=== PATIENT | male | born 1980 | race African-American/Black ===

== ENCOUNTER 2024-03-22 04:45 | Emergency (ER) | payer SELFPAY ==
[2024-03-22] MEDS ORDERED: cloNIDine 0.1 MG TAB ONE (05:04)
[2024-03-22] MEDS ORDERED: Furosemide 40 MG (4 mL) VIAL ONE (05:04)
[2024-03-22] MEDS ORDERED: Nitroglycerin 0.4 MG TAB 1 EACH ONE (05:04)
[2024-03-22 05:13] LABS: #Basophils Less than 0.03 10x3/uL (0.0-0.2); #Eosinophils 0.06 10x3/uL (0.0-0.5); #Monocytes 0.35 10x3/uL (0.0-1.1); #Neutrophils 3.67 10x3/uL (1.5-8.4); %Basophils 0.3 % (0.0-2.0); %Lymphocytes 28.1 % (18.0-47.0); %Monocytes 6.1 % (0.0-10.0); %Neutrophils 64.3 % (40.0-75.0); Hematocrit 42.9 % (38.8-50.0); Hemoglobin 13.9 g/dL (13.5-17.5); Mean Corpuscular HGB CONC 32.4 g/dL (32.0-36.0); Mean Corpuscular Hemoglobin 28.6 pg (27.0-33.0); Mean Corpuscular Volume 88.3 fL (81.2-95.1); Platelet Count 302 10x3/uL (150-450); RBC Distribution Width 12.9 % (11.5-14.5); Red Blood Cell (RBC) Count 4.86 10x6/uL (4.32-5.72); White Blood Cell (WBC) Count 5.72 10x3/uL (3.5-10.5)
[2024-03-22 05:32] LABS: ALT (SGPT) 76 U/L (8-55); AST (SGOT) 58 U/L (5-34); Albumin 3.1 g/dL (3.5-5.0); Alkaline Phosphatase 56 U/L (40-110); Anion Gap 14 mmol/L (10-20); BUN (Urea Nitrogen) 29 mg/dL (8.9-20.6); Bilirubin, Total 0.5 mg/dL (0.2-1.2); Calc. Creatinine Clearance 0 mL/min (70-130); Calcium 8.6 mg/dL (7.8-10.44); Carbon Dioxide 21 mmol/L (22-29); Chloride 108 mmol/L (98-107); Estimated GFR 49; Globulin 3.2 g/dL (2.4-3.5); Glucose 129 mg/dL (70-105); Lipase 19 U/L (8-78); Magnesium 1.7 mg/dL (1.6-2.6); Potassium 3.9 mmol/L (3.5-5.1); Protein, Total 6.3 g/dL (6.0-8.3); Sodium 139 mmol/L (136-145)
[2024-03-22] MEDS ORDERED: Nitroglycerin 50 MG/250 ML BOT 250 ML ONE (05:38)
[2024-03-22] MEDS ORDERED: Aspirin Chewable 81 MG TAB ONE (05:39)
[2024-03-22 05:40] LABS: Critical Call Chem Troponin I NUR.AEB@0539; Troponin I 3.164 ng/mL (< 0.028)
[2024-03-22] MEDS ORDERED: Enoxaparin 80 MG (0.8 mL) SYRINGE ONE (06:24)
[2024-03-22] MEDS ORDERED: Iopamidol 370 76% 100 ML VIAL ONE (10:43)
== END 2024-03-22 11:24 | disposition short-term general hospital (02) ==
LOC: CSHERS 04:45
DX: I21.4 Non-ST elevation (NSTEMI) myocardial infarction (principal); I16.1 Hypertensive emergency; I11.0 Hypertensive heart disease with heart failure; I50.9 Heart failure, unspecified
CPT/HCPCS: 71045; 71275; 80053; 83605; 83690; 83735; 83880; 84443; 84484; 85025; 93005; 93010; 96372; 96374; 96375; J1650; J1940; Q9967